=== PATIENT | male | born 1970 | race Caucasian/White ===

== ENCOUNTER 2021-03-17 13:53 | Emergency (ER) | payer BC ==
[2021-03-17 14:58] VITALS: TEMP 98.4; BMI 40.0
[2021-03-17] MEDS ORDERED: CASIRIVIMAB/IMDEVIMAB 10 ML in SODIUM CHLORIDE 100 ML IVPB ONE (15:54)
[2021-03-17 19:07] VITALS: BP 135/68; PULSE 74
== END 2021-03-17 19:55 | disposition home or self-care (01) ==
LOC: JCOVINFU 13:53
DX: U07.1 COVID-19 (principal)
CPT/HCPCS: 99284-25; Q0240